=== PATIENT | male | born 1945 | race Caucasian/White ===

== ENCOUNTER 2017-11-18 01:37 | Inpatient (IN) | payer OTHER, BC ==
[2017-11-18] MEDS ORDERED: ASPIRIN 81 MG CHEWABLE TABLETS PO ONE (02:08)
--- NOTE | 2017-11-18 02:09 | PDOC ---
History of Present Illness - General Chief Complaint: Revisit, Lab Variance Stated Complaint: INCREASES TROPONIN LEVELS Time Seen by Provider: 11/18/17 02:05 History Source: Patient - History of Present Illness Initial Comments: 11/18/17 04:20 72 year old male At 4:[address] [facility] patient with the sudden onset of diaphoresis after activity with chest discomfort and bloating feeling. At that time EKG and troponin was done which was within normal limits. troponin was repeated 4 hours later noted to be 0.55. Patient was sent to the emergency room for evaluation. Patient's reports that shortly after episode at 4 :30 symptoms completely resolved. Patient currently remains asymptomatic with no shortness of breath, diaphoresis, chest pain, SOB,nausea, vomiting. Patient reports that he takes 365 of aspirin today. Patient had hip replacement on by Dr. Davila. Past medical history cardiac stents, hypertension, hypercholesterolemia, type 2 diabetes, BPH, GERD, and decreased hearing with hearing aids, right total knee replacement, left hip replacement Dr. Lam: PMD Cardiology: Past History - Past Medical History Allergies/Adverse Reactions: Allergies Allergy/AdvReac Type Severity Reaction Status Date / Time No Known Allergies Allergy Verified 11/18/17 02:18 Home Medications: Ambulatory Orders Alogliptin Jose/Metformin HCl [Alogliptin-Metformin 12.5-1000] 1 each PO BID Atorvastatin Ca [Lipitor] 80 mg PO HS 10/21/17 Bifidobacterium Infantis [Align] 10.5 mg PO DAILY 10/21/17 Dapagliflozin Propanediol [Farxiga] 10 mg PO DAILY 10/21/17 Gluc Gupta/MSM/Magnesium/Vit C [Glucosamine Complex-MSM Cap] 1 each PO DAILY Lisinopril 5 mg PO DAILY 10/21/17 Metoprolol Succinate 100 mg PO DAILY 10/21/17 Mirabegron [Myrbetriq] 50 mg PO DAILY 10/21/17 [place]-3S/Dha/Epa/Fish Oil [Fish Oil [place]-3 Softgel] 1 each PO DAILY 10/21/17 Pantoprazole Sodium [Protonix] 40 mg PO DAILY 10/21/17 Ranitidine [Zantac -] 150 mg PO HS 10/21/17 Aspirin [ASA -] 325 mg PO DAILY@0800 tablet 11/04/17 Econazole Nitrate 2 applic TP BID 11/18/17 Anemia: No Asthma: No Cancer: No Cardiac Disorders: Yes (ANGINA STENTS X 2) CVA: No COPD: No CHF: No Dementia: No Diabetes: Yes GI Disorders: Yes (GERD) Disorders: No HTN: Yes Hypercholesterolemia: Yes Liver Disease: No Seizures: No Thyroid Disease: No - Surgical History Orthopedic Surgery: Yes (R TKR, TRIGGER FINGER, L SHOULDER ARTHROSCOPY) - Suicide/Smoking/Psychosocial Hx Smoking History: Never smoked Hx Alcohol Use: No (HOLIDAYS) Drug/Substance Use Hx: No Hx Substance Use Treatment: No *Physical Exam - Vital Signs 11/18/17 04:30 Last Vital Signs Temp Pulse Resp BP Pulse Ox 97.5 F L 69 18 109/78 98 11/18/17 01:50 11/18/17 01:50 11/18/17 01:50 11/18/17 01:50 11/18/17 02:33 - Physical Exam General Appearance: Yes: Appropriately Dressed Respiratory/Chest: positive: Lungs Clear, Normal Breath Sounds Cardiovascular: positive: Regular Rhythm, Regular Rate. negative: Edema Vascular Pulses: Dorsalis-Pedis (R): 2+, Doralis-Pedis (L): 2+ Gastrointestinal/Abdominal: positive: Normal Bowel Sounds, Soft Extremity: positive: Normal Capillary Refill, Normal Inspection Integumentary: positive: Normal Color, Dry Neurologic: positive: Fully Oriented, Alert, Normal Mood/Affect Heart Score/ECG Review - History History: Moderately suspicious - Electrocardiogram EKG: Normal - Age Age: >/= 65 - Risk Factors Risk Factors Heart Score: Yes Hx Hypercholesterolemia, Yes Hx Hypertension, Yes Hx Diabetes, Yes Hx Obesity Based on the list above the patient has:: >/=3 risk factors or Hx atherosclerotic disease - Troponin Troponin: >/=3x normal limit - Score Heart Score - Total: 7 - ECG Intrepretation Rhythm: Regular Rhythm Comment:: 11/18/17 04:32 66 bpm : NSR ED Treatment Course - LABORATORY CBC & Chemistry Diagram: 11/18/17 03:15 11/18/17 03:15 Medical Decision Making - Medical Decision Making 11/18/17 04:31 A: chest pain P: cbc cmp troponin chest xray EKG 11/18/17 04:[address] Mehta. recommends CTA chest to r/o PE, IV heparin, beta jhoan and aspirin 11/18/17 05:46 CTA chest : No definite PE, but evaluation limited by suboptimal contrast opacification. No aortic aneurysm. No pneumonia or pleural effusions. Coronary artery disease. Bilateral renal cysts. patient signed out to Adilia Hall NP. *DC/Admit/Observation/Transfer Diagnosis at time of Disposition: NSTEMI (non-ST elevated myocardial infarction) - Discharge Dispostion Condition at time of disposition: Fair Decision to Admit order: Yes - Referrals Referrals: Crhis Lam MD [Primary Care Provider] - - Patient Instructions - Post Discharge Activity
[2017-11-18 02:18] VITALS: BMI 35.4
[2017-11-18] MEDS ORDERED: ASPIRIN 81 MG CHEWABLE TABLETS ONE (02:38)
[2017-11-18 03:26] LABS: BASO % 1.2 % (0-2.0); EOS % 3.6 % (0-4.5); HEMATOCRIT 38.6 % (35.4-49); HEMOGLOBIN 12.7 GM/dL (11.7-16.9); LYMPH % 19.6 % (8-40); MCH 28.5 pg (25.7-33.7); MEAN CELL VOLUME 86.3 fl (80-96); MEAN PLT VOLUME 6.2 fl (7.5-11.1); MONO % 6.8 % (3.8-10.2); NEUT % 68.8 % (42.8-82.8); PLATELET COUNT 555 K/MM3 (134-434); RBC 4.47 M/mm3 (4.00-5.60); RDW 15.1 % (11.9-15.9); WHITE BLOOD COUNT 14.9 K/mm3 (4.0-10.0)
[2017-11-18 03:37] LABS: INR 1.07 (0.82-1.09); PROTHROMBIN TIME (PATIENT) 12.1 SEC (9.7-13.0)
[2017-11-18 03:40] LABS: URINE APPEARANCE CLEAR; URINE BILIRUBIN NEGATIVE (<2.0 mg/dL); URINE COLOR LTYELLOW; URINE GLUCOSE (UA) NEGATIVE (NEGATIVE); URINE KETONE NEGATIVE (NEGATIVE); URINE LEUK ESTERASE NEGATIVE (NEGATIVE); URINE NITRITE NEGATIVE (NEGATIVE); URINE PROTEIN NEGATIVE (NEGATIVE); URINE UROBILINOGEN NEGATIVE mg/dL (0.2-1.0)
[2017-11-18 04:12] LABS: ANION GAP 8 (8-16); BILIRUBIN,TOTAL 0.3 mg/dL (0.2-1.0); BLOOD UREA NITROGEN 17 mg/dL (7-18); CALCIUM 8.7 mg/dL (8.5-10.1); CHLORIDE 102 mmol/L (98-107); CO2 28 mmol/L (21-32); CREATININE 0.8 mg/dL (0.7-1.3); GLUCOSE,RANDOM 116 mg/dL (74-106); MAGNESIUM 1.4 mg/dL (1.8-2.4); POTASSIUM 4.3 mmol/L (3.5-5.1); SGOT/AST 40 U/L (15-37); SGPT/ALT 39 U/L (12-78); SODIUM 138 mmol/L (136-145); TOT PROT 6.9 g/dl (6.4-8.2)
[2017-11-18 04:15] LABS: ALK PHOS 148 U/L (45-117)
[2017-11-18] MEDS ORDERED: HEPARIN NA (PORCINE) 5,000 UNITS/ML 1ML VIAL IVPUSH PRN ×2 (04:42)
[2017-11-18] MEDS ORDERED: HEPARIN SOD,PORK IN 0.45% NACL 25,000 UNITS/500 ML INFUS.BAG IVPB SCH (04:45)
[2017-11-18] MEDS ORDERED: HEPARIN INFUSION - 25,000 UNITS/500 ML INFUS.BAG IVPB ONE (04:59)
[2017-11-18] MEDS ORDERED: HEPARIN NA (PORCINE) 5,000 UNITS/ML 1ML VIAL ONE (04:59)
[2017-11-18] MEDS ORDERED: ASPIRIN COATED 81 MG TABLET.EC PO ONE (05:00)
[2017-11-18] MEDS ORDERED: METOPROLOL TARTRATE 25 MG TABLET (FP) PO ONE (05:00)
--- NOTE | 2017-11-18 05:07 | PDOC ---
*Physical Exam - Vital Signs Last Vital Signs Temp Pulse Resp BP Pulse Ox 97.5 F L 65 20 125/59 95 11/18/17 01:50 11/18/17 04:46 11/18/17 04:46 11/18/17 04:46 11/18/17 04:46 ED Treatment Course - LABORATORY CBC & Chemistry Diagram: 11/18/17 03:15 11/18/17 03:15 - ADDITIONAL ORDERS Additional order review: Laboratory Results 11/18/17 11/18/17 11/18/17 03:20 03:15 03:15 PT with INR 12.10 INR 1.07 Sodium 138 Potassium 4.3 Chloride 102 Carbon Dioxide 28 Anion Gap 8 BUN 17 Creatinine 0.8 Creat Clearance w eGFR > 60 Random Glucose 116 H Calcium 8.7 Magnesium 1.4 L Total Bilirubin 0.3 AST 40 H ALT 39 Alkaline Phosphatase 148 H Creatine Kinase 212 Creatine Kinase Index 9.6 H* CK-MB (CK-2) 20.54 H Troponin I 4.19 H* Total Protein 6.9 Albumin 3.0 L Urine Color Ltyellow Urine Appearance Clear Urine pH 5.0 Ur Specific [place] 1.013 Urine Protein Negative Urine Glucose (UA) Negative Urine Ketones Negative Urine Blood Negative Urine Nitrite Negative Urine Bilirubin Negative Urine Urobilinogen Negative Ur Leukocyte Esterase Negative 11/18/17 03:15 RBC 4.47 MCV 86.3 MCHC 33.0 RDW 15.1 MPV 6.2 L Neutrophils % 68.8 Lymphocytes % 19.6 Monocytes % 6.8 Eosinophils % 3.6 Basophils % 1.2 - Medications Given in the ED: ED Medications Discontinued Medications Generic Name Dose Route Start Last Admin Trade Name Joaquín PRN Reason Stop Dose Admin Aspirin 162 mg 11/18/17 02:08 11/18/17 02:46 Asa - PO 11/18/17 02:09 Not Given ONCE ONE Medical Decision Making - Medical Decision Making 11/18/17 05:07 agree with care from CARRIE Cornejo *DC/Admit/Observation/Transfer Diagnosis at time of Disposition: NSTEMI (non-ST elevated myocardial infarction) - Discharge Dispostion Condition at time of disposition: Fair - Referrals Referrals: Chris Lam MD [Primary Care Provider] - - Patient Instructions - Post Discharge Activity
[2017-11-18] MEDS ORDERED: ACETAMINOPHEN 325 MG TABLET (FP) PO ONE (05:30)
[2017-11-18] MEDS ORDERED: ACETAMINOPHEN 325 MG TABLET (FP) ONE (05:34)
[2017-11-18] MEDS ORDERED: METOPROLOL TARTRATE 25 MG TABLET (FP) ONE (05:34)
--- NOTE | 2017-11-18 05:54 | HP ---
CHIEF COMPLAINT: Chest Pain PCP: Dr. Lam HISTORY OF PRESENT ILLNESS: This is a 72 y/o man with a significant medical history of CAD s/p stents x2, Angina, HTN, HLD, DM, GERD,BPH, [place]. Who presents to the ED from [facility] patient with the sudden onset of diaphoresis after activity with chest discomfort and bloating feeling. At that time EKG and troponin was done which was within normal limits. troponin was repeated 4 hours later noted to be 0.55. Patient was sent to the emergency room for evaluation. Patient's reports that shortly after episode at 4:30 symptoms completely resolved. Patient currently remains asymptomatic with no shortness of breath, diaphoresis, chest pain, SOB,nausea, vomiting. Patient reports that he takes 365 of aspirin today. Patient had hip replacement on by Dr. Davila.with chest pain x yesterday 4:30pm. ER course was notable for: (1) Troponin 4.19 (2) EKG- NSR 66bpm, no ST or TWI (3) CTA- neg PE (4) WBC 14.9 Recent Travel: None PAST MEDICAL HISTORY: See HPI PAST SURGICAL HISTORY: Stents x2 R- Total Knee Replacement L- Total Hip Replacement Social History: Smoking: Never Alcohol: None Drugs: None Family History: Father: ASHD, age 71 Mother: COPD, age 73 Allergies No Known Allergies Allergy (Verified 11/18/17 02:18) HOME MEDICATIONS: Home Medications Medication Instructions Recorded Alogliptin Jose/Metformin HCl 1 each PO BID 10/21/17 [Alogliptin-Metformin 12.5-1000] Atorvastatin Ca [Lipitor] 80 mg PO HS 10/21/17 Bifidobacterium Infantis [Align] 10.5 mg PO DAILY 10/21/17 Dapagliflozin Propanediol [Farxiga] 10 mg PO DAILY 10/21/17 Gluc Gupta/MSM/Magnesium/Vit C 1 each PO DAILY 10/21/17 [Glucosamine Complex-MSM Cap] Lisinopril 5 mg PO DAILY 10/21/17 Metoprolol Succinate 100 mg PO DAILY 10/21/17 Mirabegron [Myrbetriq] 50 mg PO DAILY 10/21/17 [place]-3S/Dha/Epa/Fish Oil [Fish 1 each PO DAILY 10/21/17 Oil [place]-3 Softgel] Pantoprazole Sodium [Protonix] 40 mg PO DAILY 10/21/17 Ranitidine [Zantac -] 150 mg PO HS 10/21/17 Aspirin [ASA -] 325 mg PO DAILY@0800 tablet 11/04/17 Econazole Nitrate 2 applic TP BID 11/18/17 REVIEW OF SYSTEMS CONSTITUTIONAL: Absent: fever, chills, diaphoresis, generalized weakness, malaise, loss of appetite, weight change HEENT: Absent: rhinorrhea, nasal congestion, throat pain, throat swelling, difficulty swallowing, mouth swelling, ear pain, eye pain, visual changes CARDIOVASCULAR: chest pain Absent: chest pain, syncope, palpitations, irregular heart rate, lightheadedness , peripheral edema RESPIRATORY: Absent: cough, shortness of breath, dyspnea with exertion, orthopnea, wheezing, stridor, hemoptysis GASTROINTESTINAL: Absent: abdominal pain, abdominal distension, nausea, vomiting, diarrhea, constipation, melena, hematochezia GENITOURINARY: Absent: dysuria, frequency, urgency, hesitancy, hematuria, flank pain, genital pain MUSCULOSKELETAL: Absent: myalgia, arthralgia, joint swelling, back pain, neck pain SKIN: Absent: rash, itching, pallor HEMATOLOGIC/IMMUNOLOGIC: Absent: easy bleeding, easy bruising, lymphadenopathy, frequent infections ENDOCRINE: Absent: unexplained weight gain, unexplained weight loss, heat intolerance, cold intolerance NEUROLOGIC: Absent: headache, focal weakness or paresthesias, dizziness, unsteady gait, seizure, mental status changes, bladder or bowel incontinence PSYCHIATRIC: Absent: anxiety, depression, suicidal or homicidal ideation, hallucinations. PHYSICAL EXAMINATION Vital Signs - 24 hr 11/18/17 11/18/17 11/18/17 01:50 02:33 04:46 Temperature 97.5 F L Pulse Rate 69 Pulse Rate [ 65 Left] Respiratory 18 20 Rate Blood Pressure 109/78 Blood Pressure 125/59 [Right Arm] O2 Sat by Pulse 97 98 95 Oximetry (%) GENERAL: Awake, alert, and fully oriented, in no acute distress. HEAD: Normal with no signs of trauma. EYES: Pupils equal, round and reactive to light, extraocular movements intact, sclera anicteric, conjunctiva clear. No lid lag. EARS, NOSE, THROAT: Ears normal, nares patent, oropharynx clear without exudates. Moist mucous membranes. NECK: Normal range of motion, supple without lymphadenopathy, JVD, or masses. LUNGS: Breath sounds equal, clear to auscultation bilaterally. No wheezes, and no crackles. No accessory muscle use. HEART: Regular rate and rhythm, normal S1 and S2 without murmur, rub or gallop. ABDOMEN: Soft, nontender, not distended, normoactive bowel sounds, no guarding, no rebound, no masses. No hepatomegaly or splenomegaly. MUSCULOSKELETAL: Normal range of motion at all joints. No bony deformities or tenderness. No CVA tenderness. UPPER EXTREMITIES: 2+ pulses, warm, well-perfused. No cyanosis. No clubbing. No peripheral edema. LOWER EXTREMITIES: 2+ pulses, warm, well-perfused. No calf tenderness. No peripheral edema. NEUROLOGICAL: Cranial nerves II-XII intact. Normal speech. Normal gait. PSYCHIATRIC: Cooperative. Good eye contact. Appropriate mood and affect. SKIN: Warm, dry, normal turgor, no rashes or lesions noted, normal capillary refill. Laboratory Results - last 24 hr 11/18/17 11/18/17 11/18/17 03:15 03:15 03:15 WBC 14.9 H RBC 4.47 Hgb 12.7 Hct 38.6 MCV 86.3 MCH 28.5 MCHC 33.0 RDW 15.1 Plt Count 555 H MPV 6.2 L Absolute Neuts (auto) 10.2 Neutrophils % 68.8 Lymphocytes % 19.6 Monocytes % 6.8 Eosinophils % 3.6 Basophils % 1.2 Nucleated RBC % 0 PT with INR 12.10 INR 1.07 PTT (Actin FS) Sodium 138 Potassium 4.3 Chloride 102 Carbon Dioxide 28 Anion Gap 8 BUN 17 Creatinine 0.8 Creat Clearance w eGFR > 60 Random Glucose 116 H Calcium 8.7 Magnesium 1.4 L Total Bilirubin 0.3 AST 40 H ALT 39 Alkaline Phosphatase 148 H Creatine Kinase 212 Creatine Kinase Index 9.6 H* CK-MB (CK-2) 20.54 H Troponin I 4.19 H* Total Protein 6.9 Albumin 3.0 L Urine Color Urine Appearance Urine pH Ur Specific [place] Urine Protein Urine Glucose (UA) Urine Ketones Urine Blood Urine Nitrite Urine Bilirubin Urine Urobilinogen Ur Leukocyte Esterase 11/18/17 11/18/17 03:15 03:20 WBC RBC Hgb Hct MCV MCH MCHC RDW Plt Count MPV Absolute Neuts (auto) Neutrophils % Lymphocytes % Monocytes % Eosinophils % Basophils % Nucleated RBC % PT with INR INR PTT (Actin FS) 29.5 Sodium Potassium Chloride Carbon Dioxide Anion Gap BUN Creatinine Creat Clearance w eGFR Random Glucose Calcium Magnesium Total Bilirubin AST ALT Alkaline Phosphatase Creatine Kinase Creatine Kinase Index CK-MB (CK-2) Troponin I Total Protein Albumin Urine Color Ltyellow Urine Appearance Clear Urine pH 5.0 Ur Specific [place] 1.013 Urine Protein Negative Urine Glucose (UA) Negative Urine Ketones Negative Urine Blood Negative Urine Nitrite Negative Urine Bilirubin Negative Urine Urobilinogen Negative Ur Leukocyte Esterase Negative ASSESSMENT/PLAN: 72 y/o man Admitted to Telemetry for NSTEMI. Plan: 1. Cardiology: NSTEMI, HTN, HLD - Admit to Telemetry - Cardiology aware - Serial Enzymes - Serial EKGs - Heparin Drip - Asa, BB given in ED, will continue - Continue Lipitor, Lisinopril - CTA Chest- no PE - Echo in am - NPO 2. Diabetes Mellitus - BGMs - Hold home meds secondary to recent IV contrast - ISS, when diet resumed - HgbA1c in am - Monitor renal function 3. BPH - Continue Myrbetriq 4. FEN - Replete lytes prn - NPO until seen by Cardiology 5. DVT ppx - SCDs - Continue Heparin IV for NSTEMI Problem List - Problem (1) NSTEMI (non-ST elevated myocardial infarction) Code(s): I21.4 - NON-ST ELEVATION (NSTEMI) MYOCARDIAL INFARCTION (2) HTN (hypertension) Code(s): I10 - ESSENTIAL (PRIMARY) HYPERTENSION (3) HLD (hyperlipidemia) Code(s): E78.5 - HYPERLIPIDEMIA, UNSPECIFIED (4) Diabetes mellitus Code(s): E11.9 - TYPE 2 DIABETES MELLITUS WITHOUT COMPLICATIONS (5) BPH (benign prostatic hyperplasia) Code(s): N40.0 - BENIGN PROSTATIC HYPERPLASIA WITHOUT LOWER URINRY TRACT SYMP Visit type - Emergency Visit Emergency Visit: Yes ED Registration Date: 11/18/17 Care time: The patient presented to the Emergency Department on the above date and was hospitalized for further evaluation of their emergent condition. - New Patient This patient is new to me today: Yes Date on this admission: 11/18/17 - Critical Care Critical Care patient: No Hospitalist Screening - Colonoscopy Questionnaire Colonoscopy Questionnaire: Colonoscopy Questionnaire - Patient: 50 - 75 years old and never had a screening colonoscopy: No History of colon or rectal polyps, or CA: No History of IBD, Crohn's disease or UC: No History of abdominal radiation therapy as a child: No - Relative: 1 with colon or rectal CA, or polyps at age 60 or younger: No Colon or rectal CA diagnosed at age 45 or younger: No Multiple relatives with colon or rectal CA: No - Outcome: Screening Result: Negative Screen
[2017-11-18] MEDS ORDERED: ASPIRIN COATED 81 MG TABLET.EC PO SCH (10:00)
[2017-11-18] MEDS ORDERED: LISINOPRIL 5 MG TABLET (FP) PO SCH (10:00)
[2017-11-18] MEDS ORDERED: PANTOPRAZOLE 40 MG TABLET (FP) PO SCH (10:00)
[2017-11-18] MEDS ORDERED: PATIENT'S OWN MEDICATION (NON-FORMULARY) (Omega-3s/Dha/Epa/Fish Oil [Fish Oil Omega-3 Soft PO SCH (10:00)
[2017-11-18 10:07] LABS: MAGNESIUM 1.5 mg/dL (1.8-2.4); PHOSPHOROUS 3.1 mg/dL (2.5-4.9)
[2017-11-18] MEDS ORDERED: LISINOPRIL 5 MG TABLET (FP) ONE (10:20)
[2017-11-18] MEDS ORDERED: PANTOPRAZOLE 40 MG TABLET (FP) ONE (10:20)
--- NOTE | 2017-11-18 11:04 | CON.CARD ---
Consult Consult Specialty:: Cardiology - History of Present Illness Chief Complaint: Chest pain History of Present Illness: 72 yo M with DM an CAD sp PCI >10 years ago is post elective Lt hip replacement without complications. He was transferred to [facility]. Yesterday after walking developed diaphoresis, dyspnea and 2 hours of chest pressure. There were no ECG changes reportedly and initial enzymes were negative. On followup labs had mild TP elevation. He has been chest pain free since admission. A CT chest last night in ER showed no pulmonary embolism. There was diffuse Coronary calcifications. - History Source History Provided By: Patient, Family Member Limitations to Obtaining History: No Limitations - Past Medical History Cardio/Vascular: Yes: CAD, HTN - Alcohol/Substance Use Hx Alcohol Use: No (HOLIDAYS) - Smoking History Smoking history: Never smoked Have you smoked in the past 12 months: No Home Medications - Allergies Allergies/Adverse Reactions: Allergies Allergy/AdvReac Type Severity Reaction Status Date / Time No Known Allergies Allergy Verified 11/18/17 02:18 - Home Medications Home Medications: Ambulatory Orders Alogliptin Jose/Metformin HCl [Alogliptin-Metformin 12.5-1000] 1 each PO BID Atorvastatin Ca [Lipitor] 80 mg PO HS 10/21/17 Bifidobacterium Infantis [Align] 10.5 mg PO DAILY 10/21/17 Dapagliflozin Propanediol [Farxiga] 10 mg PO DAILY 10/21/17 Gluc Gupta/MSM/Magnesium/Vit C [Glucosamine Complex-MSM Cap] 1 each PO DAILY Lisinopril 5 mg PO DAILY 10/21/17 Metoprolol Succinate 100 mg PO DAILY 10/21/17 Mirabegron [Myrbetriq] 50 mg PO DAILY 10/21/17 [place]-3S/Dha/Epa/Fish Oil [Fish Oil [place]-3 Softgel] 1 each PO DAILY 10/21/17 Pantoprazole Sodium [Protonix] 40 mg PO DAILY 10/21/17 Ranitidine [Zantac -] 150 mg PO HS 10/21/17 Aspirin [ASA -] 325 mg PO DAILY@0800 tablet 11/04/17 Econazole Nitrate 2 applic TP BID 11/18/17 Home Medications (free text): Aspirin 81mgqd-Was on ASA at alpha Review of Systems - Review of Systems Constitutional: reports: No Symptoms, Diaphoresis. denies: Chills, Fever Eyes: reports: No Symptoms HENT: reports: No Symptoms. denies: Difficult Swallowing, Ear Discharge Neck: reports: No Symptoms Cardiovascular: reports: Chest Pain, Edema, Shortness of Breath. denies: Palpitations Respiratory: reports: Exercise Intolerance. denies: Cough, Hemoptysis Gastrointestinal: reports: No Symptoms. denies: Abdominal Pain, Bloating, Nausea, Rectal Bleeding Genitourinary: reports: No Symptoms Musculoskeletal: reports: Extremity Pain. denies: Back Pain Vital Signs: Vital Signs Temperature 97.5 F L 11/18/17 01:50 Pulse Rate 67 11/18/17 07:10 Respiratory Rate 17 11/18/17 07:10 Blood Pressure 128/82 11/18/17 07:10 O2 Sat by Pulse Oximetry (%) 96 11/18/17 07:10 Constitutional: Yes: Well Nourished, No Distress, Calm Eyes: Yes: Conjunctiva Clear, EOM Intact HENT: Yes: Atraumatic, Normocephalic Neck: Yes: Supple, Trachea Midline Respiratory: Yes: Regular, CTA Bilaterally Gastrointestinal: Yes: Normal Bowel Sounds Cardiovascular: Yes: Regular Rate and Rhythm. No: Gallop, Rub JVD: No Carotid Bruit: No Heart Sounds: Yes: S1, S2 Murmur: No: Systolic Murmur, Diastolic Murmur Extremities: Yes: WNL Edema: No - Other Data Labs, Other Data: CBC, BMP 11/18/17 03:15 11/18/17 03:15 INR, PTT INR 1.07 (0.82-1.09) 11/18/17 03:15 Troponin, BNP 11/18/17 03:15 Troponin I 4.19 H* Troponin, BNP 11/18/17 03:15 Troponin I 4.19 H* NSR nl [place] and interval. Imaging - Results Chest X-ray: Report Reviewed Cat Scan: Report Reviewed Problem List - Problems (1) NSTEMI (non-ST elevated myocardial infarction) Assessment/Plan: SP recent elective hip surgery. Pt had new onset angina with NSTEMI after exercising. Has been CP free since then. Advise continuing on AC with IV heparin Load plavix 300mg ASA 81 mg qd Will transfer for cardiac cath. Continue Metoprolol XL and Lipitor 80mg qd. Code(s): I21.4 - NON-ST ELEVATION (NSTEMI) MYOCARDIAL INFARCTION
--- NOTE | 2017-11-18 12:18 | PN ---
Progress Note, Physician Chief Complaint: CHIEF COMPLAINT: Chest Pain PCP: Dr. Lam HISTORY OF PRESENT ILLNESS: This is a 72 y/o man with a significant medical history of CAD s/p stents x2, Angina, HTN, HLD, DM, GERD,BPH, [place]. Who presents to the ED from [facility] patient with the sudden onset of diaphoresis after activity with chest discomfort and bloating feeling. At that time EKG and troponin was done which was within normal limits. troponin was repeated 4 hours later noted to be 0.55. Patient was sent to the emergency room for evaluation. Patient's reports that shortly after episode at 4:30 symptoms completely resolved. Patient currently remains asymptomatic with no shortness of breath, diaphoresis, chest pain, SOB,nausea, vomiting. Patient reports that he takes 365 of aspirin today. Patient had hip replacement on by Dr. Davila.with chest pain x yesterday 4:30pm. ER course was notable for: (1) Troponin 4.19 (2) EKG- NSR 66bpm, no ST or TWI (3) CTA- neg PE (4) WBC 14.9 patient in Er started on heparin drip, lipitor 80mg hs - Current Medication List Current Medications: Active Medications Atorvastatin Calcium (Lipitor -) 80 mg PO HS [facility] Heparin Sodium (Porcine) (Heparin -) 1,000 unit IVPUSH PRN PRN PRN Reason: Heparin Heparin Sodium (Porcine) (Heparin -) 5,000 unit IVPUSH PRN PRN PRN Reason: Heparin Last Admin: 11/18/17 05:32 Dose: 5,000 unit HEPARIN SOD,PORK IN 0.45% NACL (Heparin-1/2ns 25,000 Units/500) 25,000 units in 500 mls @ 20 mls/hr IVPB TITR MANNY; Protocol Last Admin: 11/18/17 05:32 Dose: 1,000 units/hr, 20 mls/hr Lisinopril (Prinivil) 5 mg PO DAILY [facility] Last Admin: 11/18/17 10:00 Dose: 5 mg Metoprolol Succinate (Toprol Xl -) 100 mg PO DAILY [facility] Non-Formulary Medication ([place]-3s/Dha/Epa/Fish Oil [Fish Oil [place]-3 Softgel]) 1 each PO DAILY [facility] Pantoprazole Sodium (Protonix -) 40 mg PO DAILY [facility] Last Admin: 11/18/17 10:00 Dose: 40 mg - Objective Vital Signs: Vital Signs Temperature 97.5 F L 11/18/17 01:50 Pulse Rate 67 11/18/17 07:10 Respiratory Rate 17 11/18/17 07:10 Blood Pressure 128/82 11/18/17 07:10 O2 Sat by Pulse Oximetry (%) 96 11/18/17 07:10 currently no CP in ER no SOB no beltching or nausesa Constitutional: Yes: Calm Neck: Yes: Trachea Midline Cardiovascular: Yes: Regular Rate and Rhythm, S1, S2 Respiratory: Yes: CTA Bilaterally Gastrointestinal: Yes: Normal Bowel Sounds, Soft Edema: No Neurological: Yes: Alert, Oriented Labs: CBC, BMP 11/18/17 03:15 11/18/17 03:15 INR, PTT INR 1.07 (0.82-1.09) 11/18/17 03:15 Problem List - Problems (1) NSTEMI (non-ST elevated myocardial infarction) Assessment/Plan: heparin drip NPO to transfer to [facility] for cardiac cath right now statin BB plavix Code(s): I21.4 - NON-ST ELEVATION (NSTEMI) MYOCARDIAL INFARCTION
--- NOTE | 2017-11-18 12:25 | DS ---
Physical Examination Vital Signs: Vital Signs Temperature 97.5 F L 11/18/17 01:50 Pulse Rate 67 11/18/17 07:10 Respiratory Rate 17 11/18/17 07:10 Blood Pressure 128/82 11/18/17 07:10 O2 Sat by Pulse Oximetry (%) 96 11/18/17 07:10 Constitutional: Yes: Calm Neck: Yes: Trachea Midline Cardiovascular: Yes: Regular Rate and Rhythm, S1, S2 Respiratory: Yes: CTA Bilaterally Gastrointestinal: Yes: Normal Bowel Sounds, Soft Edema: No Neurological: Yes: Alert, Oriented Labs: CBC, BMP 11/18/17 03:15 11/18/17 03:15 Discharge Summary Reason For Visit: NSTEMI Current Active Problems BPH (benign prostatic hyperplasia) (Acute) Diabetes mellitus (Acute) HLD (hyperlipidemia) (Acute) HTN (hypertension) (Acute) NSTEMI (non-ST elevated myocardial infarction) (Acute) Other Procedures: CTA of the lung no pulmonary embolus. echo moderate apical hypokinesis Hospital Course: CHIEF COMPLAINT: Chest Pain PCP: Dr. Lam HISTORY OF PRESENT ILLNESS: This is a 72 y/o man with a significant medical history of CAD s/p stents x2, Angina, HTN, HLD, DM, GERD,BPH, HO-CHUNK. Who presents to the ED from Health system patient with the sudden onset of diaphoresis after activity with chest discomfort and bloating feeling. At that time EKG and troponin was done which was within normal limits. troponin was repeated 4 hours later noted to be 0.55. Patient was sent to the emergency room for evaluation. Patient's reports that shortly after episode at 4:30 symptoms completely resolved. Patient currently remains asymptomatic with no shortness of breath, diaphoresis, chest pain, SOB,nausea, vomiting. Patient reports that he takes 365 of aspirin today. Patient had hip replacement on by Dr. Davila.with chest pain x yesterday 4:30pm. ER course was notable for: (1) Troponin 4.19 (2) EKG- NSR 66bpm, no ST or TWI (3) CTA- neg PE (4) WBC 14.9 s/p hip replacement now with new onset angina after exercise elevated troponin- started on heparin drip got statin and metoprolol and plavix to be transferred to [facility] for cardiac cath Condition: Guarded - Instructions Referrals: Chris Lam MD [Primary Care Provider] - Disposition: TRANSFER ACUTE CARE/OTHER HOSP - Home Medications Comprehensive Discharge Medication List: Ambulatory Orders Alogliptin Jose/Metformin HCl [Alogliptin-Metformin 12.5-1000] 1 each PO BID Atorvastatin Ca [Lipitor] 80 mg PO HS 10/21/17 Bifidobacterium Infantis [Align] 10.5 mg PO DAILY 10/21/17 Dapagliflozin Propanediol [Farxiga] 10 mg PO DAILY 10/21/17 Gluc Gupta/MSM/Magnesium/Vit C [Glucosamine Complex-MSM Cap] 1 each PO DAILY Lisinopril 5 mg PO DAILY 10/21/17 Metoprolol Succinate 100 mg PO DAILY 10/21/17 Mirabegron [Myrbetriq] 50 mg PO DAILY 10/21/17 [place]-3S/Dha/Epa/Fish Oil [Fish Oil [place]-3 Softgel] 1 each PO DAILY 10/21/17 Pantoprazole Sodium [Protonix] 40 mg PO DAILY 10/21/17 Ranitidine [Zantac -] 150 mg PO HS 10/21/17 Aspirin [ASA -] 325 mg PO DAILY@0800 tablet 11/04/17 Econazole Nitrate 2 applic TP BID 11/18/17
[2017-11-18] MEDS ORDERED: CLOPIDOGREL BISULFATE 300 MG TABLET PO ONE (12:31)
--- NOTE | 2017-11-18 13:25 | EKG ---
Test Reason : Blood Pressure : / mmHG Vent. Rate : 066 BPM Atrial Rate : 066 BPM P-R Int : 164 ms QRS Dur : 094 ms QT Int : 402 ms P-R-T Axes : 020 -18 023 degrees QTc Int : 421 ms NORMAL SINUS RHYTHM NORMAL ECG WHEN COMPARED WITH ECG OF 21-JUN-2004 11:35, NO SIGNIFICANT CHANGE WAS FOUND Confirmed by Reynaldo Castro ([id number]) on 11/18/2017 1:24:53 PM Referred By: Confirmed By:Reynaldo Castro
[2017-11-18 13:56] VITALS: BP 106/71; PULSE 70; TEMP 97.7
[2017-11-18] MEDS ORDERED: ATORVASTATIN CA 80 MG TABLET (FP) PO SCH (22:00)
[2017-11-19] MEDS ORDERED: ASPIRIN 81 MG CHEWABLE TABLETS PO SCH (10:00)
== END 2017-11-18 12:49 | disposition short-term general hospital (02) | DRG 282 ==
LOC: JER 01:37 → JERBED 06:02
PROVIDERS: ADMIT Internal Medicine; ATTEND Family Medicine
DX: I21.4 Non-ST elevation (NSTEMI) myocardial infarction (principal); I25.110 Atherosclerotic heart disease of native coronary artery with unstable angina pectoris; I10 Essential (primary) hypertension; E78.5 Hyperlipidemia, unspecified; E11.9 Type 2 diabetes mellitus without complications; K21.9 Gastro-esophageal reflux disease without esophagitis; N40.0 Benign prostatic hyperplasia without lower urinary tract symptoms; Z98.61 Coronary angioplasty status; Z79.84 Long term (current) use of oral hypoglycemic drugs
CPT/HCPCS: 36415; 71046-TC-FY; 71275-TC; 80053; 80061; 81003; 82272; 82550; 82553; 83036; 83721; 83735; 84100; 84484; 85025; 85610; 85730; 93005; 93010; 93306-TC; 99285-25; J1644

== ENCOUNTER 2019-03-15 06:57 | Day surgery (SDC) | payer OTHER, BC ==
[2019-03-11 15:24] VITALS: BMI 38.2
[2019-03-15 08:59] VITALS: TEMP 97.9
[2019-03-15 10:12] VITALS: BP 118/57; PULSE 56
--- NOTE | 2019-03-16 17:28 | PATH ---
Surgical Pathology Report Patient Name: DENISSE DREW [facility]. Rec. #: [id number] /Age/Gender: 1945 (Age: 73) / M Account: [id number] Location: U-ENDOSCOPY Taken: 03/15/2019 Received: 03/15/2019 Reported: 03/16/2019 Physicians: Colleen Reid M.D. Specimen(s) Received POLYP CECUM Clinical History Adenoma surveillance Postoperative diagnosis: Polyp cecum, diverticulosis Final Diagnosis CECAL POLYP, BIOPSY: POLYPOID COLONIC MUCOSA WITH FOCAL SURFACE HYPERPLASTIC CHANGE. Electronically Signed Amarilys Parra M.D. Gross Description Received in formalin, labeled "biopsy polyp cecum" is a mays, irregular portion of soft tissue measuring 0.2 cm. in greatest dimension. The specimen is submitted in toto in one cassette. /03/15/2019 saudi03/15/2019
== END 2019-03-15 09:50 | disposition home or self-care (01) ==
LOC: JASU-ENDO 06:57
PROVIDERS: ATTEND Internal Medicine Gastroenterology
PROC: 0DBH8ZX Excision of Cecum, Via Natural or Artificial Opening Endoscopic, Diagnostic (ICD-10-PCS; principal; 2019-03-15 08:00)
DX: Z86.010 Personal history of colon polyps (principal); D12.0 Benign neoplasm of cecum; E11.9 Type 2 diabetes mellitus without complications; E78.5 Hyperlipidemia, unspecified; I10 Essential (primary) hypertension; I25.10 Atherosclerotic heart disease of native coronary artery without angina pectoris; I25.2 Old myocardial infarction; K21.9 Gastro-esophageal reflux disease without esophagitis; N40.0 Benign prostatic hyperplasia without lower urinary tract symptoms; K57.30 Diverticulosis of large intestine without perforation or abscess without bleeding; K64.8 Other hemorrhoids
CPT/HCPCS: 88305-TC

== ENCOUNTER 2021-01-22 04:38 | Day surgery (SDC) | payer OTHER, BC ==
[2021-01-17 16:26] VITALS: BMI 22.8
[2021-01-22 09:17] VITALS: BP 124/78; PULSE 68; TEMP 97.6
== END 2021-01-22 09:40 | disposition home or self-care (01) ==
LOC: JASU-ENDO 04:38
PROVIDERS: ATTEND Internal Medicine Gastroenterology
PROC: 0DB78ZX Excision of Stomach, Pylorus, Via Natural or Artificial Opening Endoscopic, Diagnostic (ICD-10-PCS; 2021-01-22)
PROC: 0DB48ZX Excision of Esophagogastric Junction, Via Natural or Artificial Opening Endoscopic, Diagnostic (ICD-10-PCS; principal; 2021-01-22 08:00)
DX: K22.70 Barrett's esophagus without dysplasia (principal); K29.50 Unspecified chronic gastritis without bleeding; K21.00 Gastro-esophageal reflux disease with esophagitis, without bleeding; K44.9 Diaphragmatic hernia without obstruction or gangrene
CPT/HCPCS: 82962

== ENCOUNTER 2021-05-05 13:30 | Emergency (ER) | payer OTHER, BC ==
[2021-05-05] MEDS ORDERED: OXYMETAZOLINE 0.05% NASAL SOLUTION 15 ML BOTTLE NS ONE ×2 (13:40→13:42)
[2021-05-05] MEDS ORDERED: LIDOCAINE HCL 1%, 10 MG/ML (50 mL VIAL) SQ ONE (13:40)
[2021-05-05] MEDS ORDERED: LIDO 2%/EPI 1:200000 PRESRVFRE (20 ML SDVIAL) ONE (13:42)
[2021-05-05] MEDS ORDERED: LIDOCAINE HCL 1%, 10 MG/ML (20ML VIAL) ONE (13:43)
[2021-05-05 13:56] VITALS: TEMP 97.9; BMI 37.3
[2021-05-05 15:06] VITALS: BP 141/82; PULSE 92
== END 2021-05-05 15:10 | disposition home or self-care (01) ==
LOC: FER 13:30
DX: R04.0 Epistaxis (principal)
CPT/HCPCS: 99283-25

== ENCOUNTER 2022-11-14 06:31 | Day surgery (SDC) | payer OTHER, BC ==
[2022-11-12 12:30] VITALS: BMI 37.3
[2022-11-14] MEDS ORDERED: LIDOCAINE HCL 1%, 10 MG/ML (20ML VIAL) ONE (07:14)
[2022-11-14] MEDS ORDERED: BUPIVACAINE HCL/PF 0.5% (5MG/ML) 10 ML VIAL ONE (07:14)
[2022-11-14] MEDS ORDERED: PROPOFOL 20 ML ONE (07:45)
[2022-11-14] MEDS ORDERED: MIDAZOLAM HCL 2 MG/2 ML SINGLE DOSE VIAL ONE ×2 (07:45→08:12)
[2022-11-14 12:25] VITALS: RESP 16; TEMP 97.7
[2022-11-14 12:34] VITALS: BP 117/62; PULSE 70
== END 2022-11-14 09:45 | disposition home or self-care (01) ==
LOC: FASU 06:31
PROVIDERS: ATTEND Orthopaedic Surgery
PROC: 0LB60ZZ Excision of Left Lower Arm and Wrist Tendon, Open Approach (ICD-10-PCS; 2022-11-14)
PROC: 01N50ZZ Release Median Nerve, Open Approach (ICD-10-PCS; principal; 2022-11-14 08:23)
DX: G56.02 Carpal tunnel syndrome, left upper limb (principal); M65.832 Other synovitis and tenosynovitis, left forearm
CPT/HCPCS: 82962; 88304-TC